=== PATIENT | male | born 1995 | race Caucasian/White ===

== ENCOUNTER 2021-02-04 14:34 | Observation (INO) ==
[2021-02-04] MEDS ORDERED: Isovue-370 500 ML BOTTLE IVP ONE (14:56)
[2021-02-04] MEDS ORDERED: Ketorolac 15 MG/ML VIAL IVP ONE (14:57)
[2021-02-04] MEDS ORDERED: 0.9 % Sodium Chloride 1,000 ML IVC ONE (14:57)
[2021-02-04 15:08] LABS: Basophils % 0.2 %; Bilirubin,Urine Negative (Negative); Blood,Urine Negative (Negative); Clarity,Urine Clear (Clear); Color,Urine Yellow (Yellow); Eosinophils # 0.2 K/mcL (0.0-0.6); Glucose,Urine (UA) Normal (Normal); Hematocrit 51.6 % (37.5-50.1); Hemoglobin 17.3 g/dL (12.9-16.9); Immature Granulocytes % 0.2 % (0-4); Ketones,Urine Negative (Negative); Leukocyte Esterase,Urine Negative (Negative); Lymphocytes # 1.9 K/mcL (0.6-4.6); Lymphocytes % 22.7 %; Mean Corpuscular HGB Conc 33.5 g/dL (31.6-35.5); Mean Corpuscular Hemoglobin 31.1 pg (28.0-33.3); Mean Corpuscular Volume 92.8 fL (83.0-100.0); Mean Platelet Volume 9.7 fL (9.4-12.4); Monocytes # 0.9 K/mcL (0.0-1.3); Monocytes % 10.3 %; Neutrophils # 5.5 K/mcL (1.6-8.9); Nitrite,Urine Negative (Negative); Platelet Count 212 K/mcL (140-400); Protein,Urine Trace mg/dL (Neg-Trace); Red Blood Count 5.56 M/mcL (4.19-5.50); Red Cell Distribution Width 11.9 % (11.5-14.5); Segmented Neutrophils % 64.6 %; Specific Gravity,Urine > 1.030 (1.010-1.025); Urobilinogen,Urine Normal (Normal); White Blood Count 8.5 K/mcL (4.3-11.1)
[2021-02-04 15:34] LABS: Alanine Aminotransferase 41 Units/L (7-52); Albumin 5.1 g/dL (3.5-5.7); Albumin/Globulin Ratio 1.8 (1.1-2.2); Alkaline Phosphatase 73 Units/L (34-104); Aspartate Amino Transferase 22 Units/L (13-39); BUN/Creatinine Ratio 14 (6-26); Bilirubin,Direct 0.3 mg/dL (0.0-0.2); Bilirubin,Indirect 1.3 mg/dL (0.0-1.0); Bilirubin,Total 1.6 mg/dL (0.3-1.0); Blood Urea Nitrogen 13 mg/dL (6-20); Calcium 9.7 mg/dL (8.6-10.3); Carbon Dioxide 28 mEq/L (23-29); Chloride 104 mEq/L (98-107); Globulin 2.9 g/dL (2.4-3.5); Glucose 71 mg/dL (70-105); Lipase 48 Units/L (11-82); Osmolality,Calculated 285 (280-300); Potassium 3.9 mEq/L (3.5-5.1); Sodium 138 mEq/L (136-145); eGFR For African Americans > 60 (> 60); eGFR For Non-African Americans > 60 (> 60)
[2021-02-04] MEDS ORDERED: Piperacillin/Tazobactam 3.375 GM in 0.9 % Sodium Chloride Mini Bag 100 ML IVPB ONE (16:40)
[2021-02-04] MEDS ORDERED: CefOXitin 1,000 MG VIAL ONE (17:36)
[2021-02-04] MEDS ORDERED: *HR* FentaNYL (PF) 100 MCG/2 ML VIAL ONE ×2 (18:04→18:55)
[2021-02-04] MEDS ORDERED: *HR* Midazolam HCl 2 MG/2 ML VIAL ONE (18:04)
[2021-02-04] MEDS ORDERED: Ondansetron 4 MG/2 ML VIAL ONE (18:04)
[2021-02-04] MEDS ORDERED: Lidocaine -MPF 2% 2 ML VIAL ONE (18:04)
[2021-02-04] MEDS ORDERED: *HR* Rocuronium Bromide 50 MG/5 ML VIAL ONE (18:04)
[2021-02-04] MEDS ORDERED: *HR* Succinylcholine 200 MG/10 ML VIAL IVP ONE (18:04)
[2021-02-04] MEDS ORDERED: *HR* Propofol 200 MG/20 ML VIAL IVP ONE (18:05)
[2021-02-04] MEDS ORDERED: Lidocaine HCL 4 ML Topical Solution (Laryng-O-Jet Kit Sterile Pak) TP ONE (18:06)
[2021-02-04] MEDS ORDERED: Sugammadex Sodium 200 MG/2 ML VIAL IV ONE (18:06)
[2021-02-04] MEDS ORDERED: Ondansetron 4 MG/2 ML VIAL IVP PRN (19:49)
[2021-02-04] MEDS ORDERED: 0.9 % Sodium Chloride 1,000 ML IVC SCH (19:49)
[2021-02-04] MEDS ORDERED: *HR* Metoprolol 5 MG/5 ML VIAL IVP PRN (19:49)
[2021-02-04] MEDS ORDERED: *HR* OxyCODONE/APAP 5/325 TABLET PO PRN (19:49)
[2021-02-04] MEDS: Piperacillin/Tazobactam 3.375 GM in 0.9 % Sodium Chloride Mini Bag 100 ML IVPB SCH (22:52)
[2021-02-05 07:58] VITALS: BP 120/71
[2021-02-05] MEDS: Piperacillin/Tazobactam 3.375 GM in 0.9 % Sodium Chloride Mini Bag 100 ML IVPB SCH (08:22)
[2021-02-05] MEDS ORDERED: Ibuprofen 800 MG TABLET PO STA (08:42)
== END 2021-02-05 11:20 | disposition home or self-care (01) ==
LOC: 3ANU 14:34 → EMEROOARM 14:34 → 3ANU 18:16
PROVIDERS: ADMIT Surgery; ATTEND Surgery